=== PATIENT | female | born 1985 | race Caucasian/White ===

== ENCOUNTER 2021-08-17 15:41 | Inpatient (IN) ==
[2021-08-17] MEDS ORDERED: Morphine Sulfate 2 MG/ML SYRINGE IVP ONE (17:07)
[2021-08-17] MEDS ORDERED: Ondansetron 4 MG/2 ML VIAL IVP ONE (17:07)
[2021-08-17 17:44] LABS: Basophils # 0.1 K/mcL (0.0-0.2); Basophils % 0.3 %; Eosinophils # 0.2 K/mcL (0.0-0.6); Eosinophils % 1.1 %; Hematocrit 39.1 % (35.3-44.9); Hemoglobin 12.9 g/dL (11.5-15.4); Immature Granulocytes % 0.4 % (0-4); Lymphocytes # 2.4 K/mcL (0.6-4.6); Lymphocytes % 13.3 %; Mean Corpuscular Hemoglobin 31.4 pg (28.0-33.3); Mean Corpuscular Volume 95.1 fL (83.0-100.0); Mean Platelet Volume 9.8 fL (9.4-12.4); Monocytes # 1.2 K/mcL (0.0-1.3); Monocytes % 6.4 %; Neutrophils # 14.2 K/mcL (1.6-8.9); Platelet Count 302 K/mcL (140-400); Red Blood Count 4.11 M/mcL (3.82-4.97); Red Cell Distribution Width 12.7 % (11.5-14.5); Segmented Neutrophils % 78.5 %; White Blood Count 18.2 K/mcL (4.3-11.1)
[2021-08-17 17:54] LABS: INR 1.1; Prothrombin Time 11.8 Seconds (9.4-12.1)
[2021-08-17 17:56] LABS: Activated Partial Thrombo Time 29.9 Seconds (26.0-36.0)
[2021-08-17 18:03] LABS: BUN/Creatinine Ratio 17 (6-26); Blood Urea Nitrogen 12 mg/dL (6-20); Calcium 8.9 mg/dL (8.6-10.3); Carbon Dioxide 25 mEq/L (23-29); Chloride 104 mEq/L (98-107); Glucose 94 mg/dL (70-105); Osmolality,Calculated 278 (280-300); Potassium 3.6 mEq/L (3.5-5.1); Sodium 134 mEq/L (136-145); eGFR For African Americans > 60 (> 60); eGFR For Non-African Americans > 60 (> 60)
[2021-08-17] MEDS ORDERED: Ketorolac 30 MG/ML VIAL IVP ONE (19:47)
[2021-08-17] MEDS ORDERED: Ondansetron 4 MG/2 ML VIAL IVP PRN (20:37)
[2021-08-17] MEDS ORDERED: Melatonin 3 MG TABLET PO PRN (20:37)
[2021-08-17] MEDS ORDERED: Naloxone 0.4 MG/ML INJ IVP PRN (20:37)
[2021-08-17] MEDS: Ketorolac 30 MG/ML VIAL IVP PRN (23:27)
[2021-08-18 04:39] LABS: Basophils % 0.2 %; Eosinophils # 0.2 K/mcL (0.0-0.6); Eosinophils % 1.8 %; Hematocrit 34.8 % (35.3-44.9); Hemoglobin 11.6 g/dL (11.5-15.4); Immature Granulocytes % 0.6 % (0-4); Lymphocytes # 2.8 K/mcL (0.6-4.6); Lymphocytes % 20.8 %; Mean Corpuscular HGB Conc 33.3 g/dL (31.6-35.5); Mean Corpuscular Hemoglobin 31.9 pg (28.0-33.3); Mean Corpuscular Volume 95.6 fL (83.0-100.0); Mean Platelet Volume 9.7 fL (9.4-12.4); Monocytes % 7.4 %; Neutrophils # 9.2 K/mcL (1.6-8.9); Platelet Count 271 K/mcL (140-400); Red Blood Count 3.64 M/mcL (3.82-4.97); Red Cell Distribution Width 12.8 % (11.5-14.5); Segmented Neutrophils % 69.2 %; White Blood Count 13.4 K/mcL (4.3-11.1)
[2021-08-18] MEDS: Ketorolac 30 MG/ML VIAL IVP PRN ×2 (04:49→21:27)
[2021-08-18 04:50] LABS: INR 1.1; Prothrombin Time 11.7 Seconds (9.4-12.1)
[2021-08-18 04:52] LABS: Activated Partial Thrombo Time 31.3 Seconds (26.0-36.0)
[2021-08-18 04:56] LABS: Alanine Aminotransferase 10 Units/L (7-52); Albumin 3.6 g/dL (3.5-5.7); Albumin/Globulin Ratio 1.3 (1.1-2.2); Alkaline Phosphatase 91 Units/L (34-104); Aspartate Amino Transferase 12 Units/L (13-39); BUN/Creatinine Ratio 25 (6-26); Bilirubin,Total 0.4 mg/dL (0.3-1.0); Blood Urea Nitrogen 16 mg/dL (6-20); Calcium 8.8 mg/dL (8.6-10.3); Carbon Dioxide 26 mEq/L (23-29); Chloride 105 mEq/L (98-107); Globulin 2.7 g/dL (2.4-3.5); Glucose 103 mg/dL (70-105); Magnesium 1.9 mg/dL (1.6-2.6); Osmolality,Calculated 281 (280-300); Phosphorous 3.8 mg/dL (2.7-4.5); Potassium 3.5 mEq/L (3.5-5.1); Sodium 135 mEq/L (136-145); Total Protein 6.3 g/dL (6.4-8.9); eGFR For African Americans > 60 (> 60); eGFR For Non-African Americans > 60 (> 60)
[2021-08-18] MEDS: Nicotine 21 MG PATCH.TD24 TD SCH ×3 (04:57→07:07)
[2021-08-18 05:44] LABS: Bilirubin,Urine Negative (Negative); Blood,Urine Small (Negative); Clarity,Urine Clear (Clear); Color,Urine Yellow (Yellow); Glucose,Urine (UA) Normal (Normal); Ketones,Urine Negative (Negative); Leukocyte Esterase,Urine Negative (Negative); Nitrite,Urine Positive (Negative); Protein,Urine 30 mg/dL (Neg-Trace); RBC,Urine 0-3 per hpf (0-3); Specific Gravity,Urine 1.026 (1.010-1.025); Urobilinogen,Urine Normal (Normal)
[2021-08-18 05:45] LABS: Bacteria,Urine Few per hpf (None-Few); Mucus,Urine Moderate per lpf (None-Few); Squamous Epithelial Cell,Urine Few per hpf (None-Few)
[2021-08-18] MEDS ORDERED: Bupivacaine/EPI 1:200k 0.25% 50 ML VIAL ONE (06:54)
[2021-08-18] MEDS ORDERED: *HR* Midazolam HCl 2 MG/2 ML VIAL ONE ×2 (07:27→07:51)
[2021-08-18] MEDS ORDERED: *HR* FentaNYL (PF) 100 MCG/2 ML VIAL ONE (07:27)
[2021-08-18] MEDS ORDERED: *HR* Propofol 200 MG/20 ML VIAL IVP ONE ×2 (07:27→08:53)
[2021-08-18] MEDS ORDERED: Lidocaine -MPF 2% 5 ML VIAL ONE (07:40)
[2021-08-18] MEDS ORDERED: Ondansetron 4 MG/2 ML VIAL ONE (07:40)
[2021-08-18] MEDS ORDERED: ROPIVACAINE/PF/NS 0.25% 1 EACH SYRINGE INTRAART ONE (07:47)
[2021-08-18] MEDS ORDERED: Ropivacaine/PF 0.5% 30 ML VIAL ONE (07:47)
[2021-08-18] MEDS ORDERED: Clindamycin 600 MG/50 ML 600 MG/50 ML IV.SOLN IVPB ONE (08:31)
[2021-08-18] MEDS ORDERED: *HR* HYDROMORPHONE 2 MG/ML VIAL ONE (08:54)
[2021-08-18] MEDS ORDERED: Melatonin 3 MG TABLET PO PRN (10:56)
[2021-08-18] MEDS ORDERED: Ondansetron 4 MG/2 ML VIAL IVP PRN (10:56)
[2021-08-18] MEDS ORDERED: Naloxone 0.4 MG/ML INJ IVP PRN (10:56)
[2021-08-18] MEDS ORDERED: Clindamycin 600 MG/50 ML 600 MG/50 ML IV.SOLN IVPB SCH (14:00)
[2021-08-18] MEDS: Clindamycin 600 MG/50 ML 600 MG/50 ML IV.SOLN IVPB SCH ×2 (14:42→20:15)
[2021-08-19] MEDS: Clindamycin 600 MG/50 ML 600 MG/50 ML IV.SOLN IVPB SCH (05:43)
[2021-08-19 05:55] LABS: Hemoglobin 11.3 g/dL (11.5-15.4)
[2021-08-19 05:56] LABS: Basophils % 0.2 %; Immature Granulocytes % 1.3 % (0-4); Lymphocytes # 1.2 K/mcL (0.6-4.6); Lymphocytes % 4.9 %; Mean Corpuscular HGB Conc 33.2 g/dL (31.6-35.5); Mean Corpuscular Hemoglobin 31.3 pg (28.0-33.3); Mean Corpuscular Volume 94.2 fL (83.0-100.0); Monocytes # 0.9 K/mcL (0.0-1.3); Monocytes % 3.6 %; Neutrophils # 22.6 K/mcL (1.6-8.9); Platelet Count 291 K/mcL (140-400); Red Blood Count 3.61 M/mcL (3.82-4.97); Red Cell Distribution Width 12.4 % (11.5-14.5); White Blood Count 25.1 K/mcL (4.3-11.1)
[2021-08-19 05:57] LABS: Basophils # 0.1 K/mcL (0.0-0.2)
[2021-08-19 06:17] LABS: BUN/Creatinine Ratio 16 (6-26); Blood Urea Nitrogen 9 mg/dL (6-20); Calcium 8.9 mg/dL (8.6-10.3); Carbon Dioxide 25 mEq/L (23-29); Chloride 105 mEq/L (98-107); Glucose 135 mg/dL (70-105); Magnesium 1.9 mg/dL (1.6-2.6); Osmolality,Calculated 287 (280-300); Potassium 3.5 mEq/L (3.5-5.1); Sodium 138 mEq/L (136-145); eGFR For African Americans > 60 (> 60); eGFR For Non-African Americans > 60 (> 60)
[2021-08-19 06:48] VITALS: BP 118/76; PULSE 87; TEMP 97.6; O2SAT 99
[2021-08-19] MEDS ORDERED: Albuterol 2.5 MG/3 ML NEBULIZER IH PRN (07:22)
[2021-08-19] MEDS: Ketorolac 30 MG/ML VIAL IVP PRN (08:30)
[2021-08-19] MEDS ORDERED: Lurasidone 20 MG TABLET PO SCH (09:00)
[2021-08-19] MEDS ORDERED: levoFLOXacin 750 MG TABLET PO SCH (09:00)
[2021-08-19] MEDS ORDERED: Nicotine 21 MG PATCH.TD24 TD SCH (09:00)
[2021-08-19] MEDS ORDERED: Cyprohepatdine 4 MG TABLET PO SCH (21:00)
== END 2021-08-19 11:00 | disposition left against medical advice (07) | DRG 493 ==
LOC: EMEROOARM 15:41 → 4WAOSI 15:41 → SUATTDRO 19:45 → 4WAOSI 20:15 → UNDODISIN 08-19 11:00
PROVIDERS: ADMIT Family Medicine; ATTEND Internal Medicine

== ENCOUNTER 2021-08-19 12:34 | Inpatient (IN) ==
[2021-08-19] MEDS ORDERED: Naloxone 0.4 MG/ML INJ IVP PRN (13:47)
[2021-08-19] MEDS ORDERED: Ondansetron ODT 4 MG TAB.RAPDIS SL PRN (13:47)
[2021-08-19] MEDS ORDERED: Acetaminophen 325 MG TABLET PO PRN (13:47)
[2021-08-19] MEDS ORDERED: Melatonin 3 MG TABLET PO PRN (13:47)
[2021-08-19 13:52] LABS: Amphetamine Screen,Urine Negative ng/mL (Cutoff=1000); Barbiturate Screen,Urine Negative ng/mL (Cutoff=200); Benzodiazepines Screen,Urine Positive ng/mL (Cutoff=200); Cannabinoid Screen,Urine Positive ng/mL (Cutoff = 50); Cocaine Screen,Urine Negative ng/mL (Cutoff= 300); Opiate Screen,Urine Positive ng/mL (Cutoff=300); Phencyclidine Screen,Urine Negative ng/mL (Cutoff=25)
[2021-08-19] MEDS: Ketorolac 30 MG/ML VIAL IVP PRN (20:04)
[2021-08-19] MEDS ORDERED: Nicotine 21 MG PATCH.TD24 TD SCH (21:00)
[2021-08-19] MEDS ORDERED: Cyprohepatdine 4 MG TABLET PO SCH (21:00)
[2021-08-19] MEDS ORDERED: Lurasidone 20 MG TABLET PO SCH (21:00)
[2021-08-19 23:23] VITALS: O2SAT 98
[2021-08-20] MEDS: Ketorolac 30 MG/ML VIAL IVP PRN ×2 (04:59→13:53)
[2021-08-20] MEDS ORDERED: *HR* Enoxaparin 40 MG/0.4 ML SYRINGE SQ SCH (06:00)
[2021-08-20 06:41] LABS: Basophils % 0.2 %; Eosinophils # 0.1 K/mcL (0.0-0.6); Eosinophils % 0.4 %; Hematocrit 29.9 % (35.3-44.9); Immature Granulocytes % 0.6 % (0-4); Lymphocytes # 4.8 K/mcL (0.6-4.6); Lymphocytes % 33.1 %; Mean Corpuscular HGB Conc 32.4 g/dL (31.6-35.5); Mean Corpuscular Hemoglobin 31.2 pg (28.0-33.3); Mean Corpuscular Volume 96.1 fL (83.0-100.0); Mean Platelet Volume 9.7 fL (9.4-12.4); Monocytes % 7.1 %; Neutrophils # 8.5 K/mcL (1.6-8.9); Platelet Count 263 K/mcL (140-400); Red Blood Count 3.11 M/mcL (3.82-4.97); Red Cell Distribution Width 13.1 % (11.5-14.5); Segmented Neutrophils % 58.6 %; White Blood Count 14.5 K/mcL (4.3-11.1)
[2021-08-20 06:49] LABS: Hemoglobin 9.7 g/dL (11.5-15.4)
[2021-08-20 07:00] LABS: BUN/Creatinine Ratio 29 (6-26); Blood Urea Nitrogen 19 mg/dL (6-20); Calcium 8.5 mg/dL (8.6-10.3); Carbon Dioxide 28 mEq/L (23-29); Chloride 107 mEq/L (98-107); Glucose 88 mg/dL (70-105); Osmolality,Calculated 292 (280-300); Potassium 3.4 mEq/L (3.5-5.1); Sodium 140 mEq/L (136-145); eGFR For African Americans > 60 (> 60); eGFR For Non-African Americans > 60 (> 60)
[2021-08-20 07:04] LABS: Platelet Estimate Normal (Normal)
[2021-08-20 07:28] VITALS: BP 100/66; PULSE 80; TEMP 98.1
[2021-08-20] MEDS ORDERED: Multivit/Ca/Min/Fe/FA 1 TAB TABLET PO SCH (09:00)
[2021-08-20] MEDS ORDERED: levoFLOXacin 750 MG TABLET PO SCH (09:00)
[2021-08-20] MEDS ORDERED: Lactobacillus 1 EACH CAP.SPRINK PO SCH (09:00)
== END 2021-08-20 17:12 | disposition home health service (06) | DRG 563 ==
LOC: 4WAOSI 12:34 → EMEROOARM 12:34 → 4WAOSI 13:58 → SUATTDRO 14:25
PROVIDERS: ADMIT Hospitalist; ATTEND Internal Medicine

== ENCOUNTER 2021-10-08 11:27 | Observation (INO) ==
[2021-10-08 12:26] LABS: Basophils # 0.1 K/mcL (0.0-0.2); Basophils % 0.4 %; Eosinophils # 0.5 K/mcL (0.0-0.6); Eosinophils % 4.2 %; Hematocrit 42.9 % (35.3-44.9); Hemoglobin 14.8 g/dL (11.5-15.4); Immature Granulocytes % 0.5 % (0-4); Lymphocytes % 23.4 %; Mean Corpuscular HGB Conc 34.5 g/dL (31.6-35.5); Mean Corpuscular Hemoglobin 31.9 pg (28.0-33.3); Mean Corpuscular Volume 92.5 fL (83.0-100.0); Mean Platelet Volume 9.7 fL (9.4-12.4); Monocytes % 7.9 %; Neutrophils # 8.1 K/mcL (1.6-8.9); Platelet Count 400 K/mcL (140-400); Red Blood Count 4.64 M/mcL (3.82-4.97); Red Cell Distribution Width 12.8 % (11.5-14.5); Segmented Neutrophils % 63.6 %; White Blood Count 12.8 K/mcL (4.3-11.1)
[2021-10-08 12:47] LABS: Estimated Average Glucose 94 mg/dl; Hemoglobin A1C 4.9 %
[2021-10-08 12:48] LABS: Acetaminophen < 10 mcg/mL (10-20); BUN/Creatinine Ratio 28 (6-26); Blood Urea Nitrogen 22 mg/dL (6-20); Calcium 10.3 mg/dL (8.6-10.3); Carbon Dioxide 23 mEq/L (23-29); Chloride 101 mEq/L (98-107); Ethanol < 10 mg/dL (Less than 10); Glucose 138 mg/dL (70-105); Osmolality,Calculated 286 (280-300); Potassium 2.9 mEq/L (3.5-5.1); Salicylate < 2.5 mg/dL (15.0-30.0); Sodium 135 mEq/L (136-145); Troponin I < 0.03 ng/mL (< 0.04); eGFR For African Americans > 60 (> 60); eGFR For Non-African Americans > 60 (> 60)
[2021-10-08] MEDS ORDERED: Potassium Chloride Elixir 20 MEQ/15 ML UDC PO ONE (12:54)
[2021-10-08 13:06] LABS: Bilirubin,Urine Negative (Negative); Blood,Urine Moderate (Negative); Clarity,Urine Turbid (Clear); Color,Urine Light-Orange (Yellow); Glucose,Urine (UA) Normal (Normal); Ketones,Urine 10 mg/dL (Negative); Leukocyte Esterase,Urine Negative (Negative); Mucus,Urine Many per lpf (None-Few); Nitrite,Urine Negative (Negative); Protein,Urine 70 mg/dL (Neg-Trace); Specific Gravity,Urine > 1.030 (1.010-1.025); Squamous Epithelial Cell,Urine Moderate per hpf (None-Few); WBC,Urine 0-3 per hpf (0-3)
[2021-10-08 14:33] LABS: Amphetamine Screen,Urine Negative ng/mL (Cutoff=1000); Barbiturate Screen,Urine Negative ng/mL (Cutoff=200); Benzodiazepines Screen,Urine Positive ng/mL (Cutoff=200); Cannabinoid Screen,Urine Positive ng/mL (Cutoff = 50); Cocaine Screen,Urine Positive ng/mL (Cutoff= 300); Opiate Screen,Urine Negative ng/mL (Cutoff=300); Phencyclidine Screen,Urine Negative ng/mL (Cutoff=25)
[2021-10-08 14:53] LABS: Chlamydia Trachomatis DNA Ur NOT DETECTED (Not Detect)
[2021-10-08] MEDS ORDERED: Ibuprofen 600 MG TABLET PO ONE (17:32)
[2021-10-08 17:57] LABS: Influenza A PCR Negative (Negative); Influenza B PCR Negative (Negative); Resp. Syncytial Virus PCR Negative (Negative); SARS-CoV-2 by PCR (In House) Negative (Negative)
[2021-10-08] MEDS ORDERED: *HR* LORazepam 2 MG/ML VIAL IM PRN (19:04)
[2021-10-08] MEDS ORDERED: traZODone 50 MG TABLET PO PRN (19:04)
[2021-10-08] MEDS ORDERED: haloperidoL 5 MG TABLET PO PRN (19:04)
[2021-10-08] MEDS ORDERED: *HR* LORazepam 1 MG TABLET PO PRN (19:04)
[2021-10-08] MEDS ORDERED: Haloperidol Lactate 5 MG/ML VIAL IM PRN (19:04)
[2021-10-08] MEDS ORDERED: hydrOXYzine pamoate 25 MG CAPSULE PO PRN (19:04)
[2021-10-08] MEDS ORDERED: Acetaminophen 325 MG TABLET PO PRN (19:04)
[2021-10-08] MEDS ORDERED: Cyprohepatdine 4 MG TABLET PO PRN (22:50)
[2021-10-08] MEDS: Lurasidone 20 MG TABLET PO SCH (23:11)
[2021-10-08 23:20] VITALS: BP 114/84
[2021-10-09] MEDS ORDERED: Mag Hydrox/Al Hydrox/Simeth 30 ML UDC PO PRN (08:07)
[2021-10-09] MEDS ORDERED: MOM Conc 10 ML UD.LIQ PO PRN (08:07)
[2021-10-09] MEDS ORDERED: Lurasidone 20 MG TABLET PO SCH (09:00)
[2021-10-09] MEDS ORDERED: Nicotine 21 MG PATCH.TD24 TD SCH (09:00)
[2021-10-09 09:31] VITALS: PULSE 125; TEMP 97.4; O2SAT 97
[2021-10-09] MEDS: Lurasidone 20 MG TABLET PO SCH (09:49)
== END 2021-10-09 13:10 | disposition home or self-care (01) ==
LOC: EMEROOARM 11:27 → 1ANU 19:10 → INTOOBSV 19:41 → 1ANU 19:41
PROVIDERS: ADMIT Psychiatry & Neurology Psychiatry; ATTEND Psychiatry & Neurology Psychiatry